=== PATIENT | male | born 1970 | race Asian ===

== ENCOUNTER 2019-03-05 15:27 | Emergency (ER) | payer OTHER ==
[~2019-03-05] VITALS: Ht 182.9 cm; Wt 73.5 kg
[2019-03-05 17:13] LABS: PLATELET COUNT 226 K/uL (142-355)
[2019-03-05 17:17] LABS: POTASSIUM 3.3 mmol/L (3.6-5.2); SODIUM 137 mmol/L (136-145)
[2019-03-05 19:23] VITALS: BP 119/74; TEMP 97.7
== END 2019-03-05 19:23 | disposition home or self-care (01) ==
LOC: ED 15:27
PROVIDERS: Family Medicine
DX: D57.1 Sickle-cell disease without crisis (principal); E86.0 Dehydration; Z98.890 Other specified postprocedural states
CPT/HCPCS: 80053; 82550; 84484; 85027; 93005; 96360; 96375; 96376; 99284; J2175; J2405